=== PATIENT | male | born 1995 | race Caucasian/White ===

== ENCOUNTER 2018-10-05 06:49 | Emergency (ER) | payer OTHER, SELFPAY ==
[2018-10-05 06:54] VITALS: BP 144/87; RESP 90; TEMP 36.5; O2SAT 96
--- NOTE | 2018-10-05 07:01 | DI.CT_ITS ---
SYMPTOM/DIAGNOSIS: PAIN, S/P FALL CT BRAIN: Noncontrast. No priors. A noncontrast cranial CT was performed. The ventricular system is normal in appearance. There is no evidence of an intracranial mass lesion. There is no evidence of a subdural or epidural hematoma. No focal areas of decreased attenuation are seen. CONCLUSION: Normal noncontrast Cranial CT. CT CERVICAL SPINE: Multiple contiguous axial images of the cervical spine were obtained. Sagittal and coronal reformatted images were evaluated on the [employer] workstation. There are no acute fractures or subluxations of the cervical spine. The soft tissues are unremarkable. There is mild straightening of the normal cervical lordosis. This may be due to muscle spasm or patient positioning. IMPRESSION: No acute fracture or subluxation in the cervical spine.
--- NOTE | 2018-10-05 07:04 | ED.GENADUL_ITS ---
Discharge Plan Disposition Patient Disposition: HOME Condition: Stable Discharge Details Chief Complaint: HeadInjury Clinical Impression: Concussion, Cervical strain Primary Care Provider: Unknown,Unknown ED Provider: Chantel Godinez Home Meds and New Rx's Prescriptions: No Action aripiprazole [Abilify] 5 mg Tablet 5 mg PO DAILY RF: 0 Discharge Instructions Instructions: Cervical Strain (ED), Concussion (ED) Additional Instructions: you can take 1000mg tylenol and 600mg ibuprofen every 6 hours for pain as needed follow up with your primary care provider in 1-2 weeks if you have new symptoms such as chest pain, abdominal pain or persistent vomit return to the emergency department Stand Alone Forms: Work Release Discharge Data Discharge Date/Time-TO BE ENTERED AT DEPARTURE: 10/05/18 09:28 Discharge Physician: Chantel Godinez Medical Decision Making <Dionte Salazar MD - Last Filed: 10/07/18 22:15> 23 yo male with hx of adhd states he slipped on ice, fell back and hit his head on ice. He had loc per pt for a few seconds. Denies any precediing symptoms such as chest pain or sob. Has pain in left upper lateral neck and posterior head without focal neuro deficits. I suspect concussion and cervical strain but given loc will image to evaluate for tbi vs cervical spine injury I do not see any traumatic findings on the CT. Pt will be signed out to oncoming provider to f/u on imaging report, d/c if negative Differential Diagnosis concussion, tbi, c spine injury Imaging Data Radiologic Study: Attestation: I personally reviewed and interpreted this imaging study as follows: Imaging: CT Scan My impression: no acute findings <Chantel Godinez DO - Last Filed: 10/06/18 17:08> Please see Dr. Salazar's notes for initial presentation, exam, and plan. Case endorsed to me to f/u on CT head and c-spine imaging results. CT head and c-spine negative. Pt feels much better. He was able to ambulate around the ED. He requested a work note to return on Tuesday. He is instructed that he may have a mild concussion, and to take Tylenol as needed for pain, get plenty of rest, avoid any risk of further injury, follow-up with primary care doctor for reevaluation and to return here immediately with any worsening headaches or persistent vomiting. Medical Records Medical records reviewed: Yes I reviewed the patient's medical records. Lab Data CT Head Without Contrast EXAM DATE/TIME: 10/05/2018 7:02 AM FINDINGS: Brain: No intracranial hemorrhage appreciated. No significant focal mass effect. Midline shift: No significant midline shift. Ventricles: No disproportionate ventriculomegaly. Bones/joints: No cranial vault fracture seen. Sinuses: No air-fluid levels identified. Mastoid air cells: No mastoid effusion. IMPRESSION: No intracranial sequelae of trauma appreciated. CT Cervical Spine Without Contrast EXAM DATE/TIME: 10/05/2018 7:02 AM FINDINGS: Vertebrae: No cervical spine fracture identified. Straightening of the normal cervical lordosis may reflect positioning or muscle spasm; correlate clinically. Lymph nodes: Nonspecific cervical lymph nodes. Lungs: No acute findings. IMPRESSION: No acute osseous injury appreciated in the cervical spine. HPI <Dionte Salazar MD - Last Filed: 10/07/18 22:15> General Mode of arrival: ambulatory . Date/Time Provider Initiated Documentation: 10/05/18 06:50 . Limitations to Documentation: no limitations . Information obtained by: patient . History of Present Illness 23 year old M presents to the emergency department with the chief complaint of head pain, described as moderate, Patient started experiencing this hour(s) (1) and it has been constant. No relieving factors improve symptom(s), No exacerbating factors reported . Patient did receive the following treatments prior to arrival, none Related Data Home Medications Medication Instructions Recorded Confirmed aripiprazole [Abilify] 5 mg PO DAILY 10/05/18 10/05/18 Allergies Allergy/AdvReac Type Severity Reaction Status Date / Time No Known Allergies Allergy Unverified 10/05/18 07:01 General Stated Complaint: HeadInjury IGLESIA: 3 Review of Systems <Dionte Salazar MD - Last Filed: 10/07/18 22:15> Review of Systems All systems reviewed & are unremarkable except as noted in HPI and below Constitutional Denies chills and Denies fever(s) ENT Denies change in voice Cardiovascular Denies chest pain and Denies dyspnea Respiratory Denies cough and Denies dyspnea Gastrointestinal Denies abdominal pain, Denies nausea and Denies vomiting Genitourinary Denies dysuria Musculoskeletal Denies joint swelling Integumentary/Breasts Denies rash PFSH <Dionte Salazar MD - Last Filed: 10/07/18 22:15> Medical History ADHD (Acute) Social History Smoking/Tobacco Use Status: Current-Occasional Tobacco Type: cigarettes Alcohol Intake: never Substance use type: does not use Do you feel safe at home: Yes Do you feel safe in your relationship?: Yes Exam <Dionte Salazar MD - Last Filed: 10/07/18 22:15> Const General: no acute distress Orientation: alert HENMT Head: normal to inspection Ears: external ears normal General nose exam: external nose normal Mouth: moist mucous membranes Eyes General: appearance normal, both eyes and all related structures Neck Neck: normal visual inspection Resp Effort & Inspection: normal respiratory effort and able to speak in complete sentences Cardio Rate: regular rate Skin General skin exam: no rashes or lesions noted Neuro General: alert and oriented x3 Extrem General: normal to inspection Psych Mental Status: mental status grossly normal Course <Dionte Salazar MD - Last Filed: 10/07/18 22:15> Vital Signs Temperature 36.5 C 10/05/18 06:54 Respiratory Rate 90 H 10/05/18 06:54 Blood Pressure 144/87 H 10/05/18 06:54 Pulse Oximetry 96 10/05/18 06:54 Temperature 36.5 C 10/05/18 06:54 Temperature Source Temporal Artery Scan 10/05/18 06:54 Respiratory Rate 90 H 10/05/18 06:54 Respiratory Effort Non-Labored 10/05/18 06:58 Blood Pressure 144/87 H 10/05/18 06:54 Blood Pressure Position Sitting 10/05/18 06:54 Pulse Oximetry 96 10/05/18 06:54 Oxygen Delivery Method Room Air 10/05/18 06:54 Oxygen Flow Rate 0 10/05/18 06:54 Pain Level 8 10/05/18 06:54 Sign Out <Dionte Salazar MD - Last Filed: 10/07/18 22:15> Sign Out Data: Sign Out Comment: follow up on ct head/cspine results Last updated by Dionte Salazar MD at 10/05/18 07:36
[2018-10-05] MEDS: Acetaminophen 500 MG TAB 1000 MG PO (07:08)
--- NOTE | 2018-10-05 08:44 | DI.VRAD_ITS ---
EXAM: CT Head Without Contrast EXAM DATE/TIME: 10/05/2018 7:02 AM CLINICAL HISTORY: 23 years old, male; Injury or trauma; Fall; Initial encounter; Blunt trauma TECHNIQUE: Axial computed tomography images of the head/brain without contrast. Coronal and sagittal reformatted images were created and reviewed. COMPARISON: No relevant prior studies available. FINDINGS: Brain: No intracranial hemorrhage appreciated. No significant focal mass effect. Midline shift: No significant midline shift. Ventricles: No disproportionate ventriculomegaly. Bones/joints: No cranial vault fracture seen. Sinuses: No air-fluid levels identified. Mastoid air cells: No mastoid effusion. IMPRESSION: No intracranial sequelae of trauma appreciated. EXAM: CT Cervical Spine Without Contrast EXAM DATE/TIME: 10/05/2018 7:02 AM CLINICAL HISTORY: 23 years old, male; Injury or trauma; Fall; Initial encounter; Blunt trauma TECHNIQUE: Axial computed tomography images of the cervical spine without intravenous contrast. Coronal and sagittal reformatted images were created and reviewed. COMPARISON: No relevant prior studies available. FINDINGS: Vertebrae: No cervical spine fracture identified. Straightening of the normal cervical lordosis may reflect positioning or muscle spasm; correlate clinically. Lymph nodes: Nonspecific cervical lymph nodes. Lungs: No acute findings. IMPRESSION: No acute osseous injury appreciated in the cervical spine. Dictated and Authenticated by: Heidy Callejas MD. Ordering:BREONNA Rapp MD
[2018-10-05 08:54] VITALS: BP 126/74; PULSE 90; RESP 18; TEMP 36.4; O2SAT 98
[2018-10-05 09:25] VITALS: BP 126/74; PULSE 90; RESP 18; TEMP 36.4; O2SAT 98
== END 2018-10-05 09:28 | disposition home or self-care (01) ==
LOC: ER 12:34
PROVIDERS: Emergency Provider Physician Assistant
DX: S06.0X1A Concussion with loss of consciousness of 30 minutes or less, initial encounter (principal); S16.1XXA Strain of muscle, fascia and tendon at neck level, initial encounter; W00.0XXA Fall on same level due to ice and snow, initial encounter
CPT/HCPCS: 99284; 70450; 72125

== ENCOUNTER 2018-10-31 06:04 | Emergency (ER) | payer OTHER, SELFPAY ==
[2018-10-31 06:07] VITALS: BP 143/79; PULSE 88; RESP 18; TEMP 36.5; O2SAT 100
--- NOTE | 2018-10-31 06:35 | ED.GENADUL_ITS ---
Discharge Plan Disposition Patient Disposition: HOME Condition: Good Discharge Details Chief Complaint: HeadInjury Clinical Impression: Concussion Primary Care Provider: None,None ED Provider: Gene Lemus Home Meds and New Rx's Prescriptions: No Action aripiprazole [Abilify] 5 mg Tablet 5 mg PO DAILY RF: 0 Discharge Instructions Instructions: Concussion (ED) Additional Instructions: Please rest for the next 24 hours, take Tylenol and Motrin as needed for headache. Please drink plenty of fluids. Please avoid any scenarios that could cause repeat trauma to her head. If you notice any worsening of your symptoms, or any new symptoms such as vomiting, diarrhea, fever, chills, shortness of breath, chest pain, numbness, weakness, or fainting , please return immediately to the emergency department for reevaluation. Please follow up with your primary care provider as soon as possible for reassessment and reevaluation. As always, it was a pleasure participating in your medical care today. Stand Alone Forms: Work Release Medical Decision Making This is a 23-year-old male presents today for evaluation of slip and fall. Patient was walking out of his apartment slipped on ice and fell and hit the back of his head. He had no loss of consciousness, he recalls the entire event. He did have mild headache after the event as well as 1-2 episodes of nausea and vomiting, over this is since resolved and he has been able to tolerate p.o. since then. He has had a concussion before. Physical exam demonstrates a reassuring neurologic exam with no neurologic deficits, no signs of significant trauma, midline neck pain, hemotympanum, or other concerning red flags. The patient ambulates well with no signs of ataxia whatsoever. Signs and symptoms are clinically consistent with concussion, and inconsistent with acute intracranial pathology. Out of an abundance of precaution I did offer a CT scan though of the head, however at this time patient has requested to hold off, which I think is completely reasonable. Patient will be discharged home with instructions for rest, close follow-up with his PCP, and prompt return for worsening of his symptoms. Diagnosis concussion. I have extensively reviewed the treatment plan and discharge instructions with the patient. I have addressed all patient concerns at this time. The patient was made aware of what symptoms to monitor for that would warrant a return to the emergency department. Discussed the plan with the patient, they demonstrate verbal understanding and agreement with our assessment and plan at this time. HPI General Date/Time Provider Initiated Documentation: 10/31/18 06:11 . HPI Narrative: This is a 23-year-old male with no significant past medical history who presents today for evaluation of fall. The patient states that roughly 2 hours ago he was walking out of his house, slipped and hit the back of his head. He did something similar to this 1 week ago. He had some mild nausea, and had 2 episodes of vomiting earlier, but has had none since then. He has been able to tolerate p.o. since then. He does admit to a very mild headache, but denies any vision changes, numbness, weakness, tingling, chest pain, shortness of breath. He denies any current dizziness. He states that he has had concussions in the past, and it is felt similar to this. He states that he is feeling slightly better than he did before, however because of the episode of vomiting came in for evaluation. Patient denies any other complaints at this time. Denies any other modifying factors. Related Data Home Medications Medication Instructions Recorded Confirmed aripiprazole [Abilify] 5 mg PO DAILY 10/05/18 10/31/18 Allergies Allergy/AdvReac Type Severity Reaction Status Date / Time No Known Allergies Allergy Unverified 10/31/18 06:09 General Stated Complaint: HeadInjury IGLESIA: 3 Review of Systems Review of Systems All systems reviewed & are unremarkable except as noted in HPI and below [facility] Social History Smoking/Tobacco Use Status: Current every day Tobacco Type: cigarettes Years smoked: 8 Alcohol Intake: never Substance use type: does not use Do you feel safe at home: Yes Do you feel safe in your relationship?: Yes Exam Narrative Exam Narrative: 1.Const: Well-nourished, Well-developed, appearing stated age 2.Eyes: PERRL, no conjunctival injection, and symmetrical lids. 3.ENT: Atraumatic external nose and ears. Moist MM. Neck: Symmetric, trachea midline, No thyromegaly. There is no evidence of raccoon eyes, felder sign, CSF rhinorrhea, mastoid tenderness, cranial crepitus, hemotympanum, exophthalmos, or hyphema. Patient demonstrates intact dentition with no signs of tooth avulsion or fracture, no signs of jaw deformity, no evidence of a LeFort's fracture, with an intact palate, nose and orbital region. There is no evidence of a nasal septal hematoma. No proptosis. Jaw closes symmetrically. Airway is clear. 4.CVS: +S1/S2, No murmurs or gallops. Peripheral pulses 2+ and equal in all extremities. Brisk capillary refill in all extremities. 5.RESP: Unlabored respiratory effort. Clear to auscultation bilaterally. No wheezes rales or rhonchi 6.GI: Soft, Nontender/Nondistended, No hepatosplenomegaly. No guarding or rebound. 7.MSK: Normocephalic/Atraumatic, Extremities w/o deformity or ttp No cyanosis or clubbing, Normal movement of all extremities no midline tenderness to palpation over the CTLS spine. Normal ROM in flexion, extension, side bend, and rotation. Patient has +5 out of 5 strength in the lower extremities in dorsiflexion and plantarflexion, knee flexion and extension, hip flexion and extension. There is +2 over 2 dorsalis pedis pulses bilaterally. There is normal sensation to the skin with light touch at the foot, knee, and hip. Normal saddle sensation. Good sensation over the deep sural nerve area bilaterally. Rectal exam deferred. Reflexes are +2 over 4 in the patellar reflex bilaterally. +5 out of 5 strength in the medial, ulnar, radial nerve distribution bilaterally in the hands as well as intact light touch sensation to these dermatomes on the hands . 8.Skin: Warm, Dry. No rashes or lesions. 9.Neuro: camp recreation specialist II-XII grossly intact. Sensation grossly intact, no focal neurologic deficits. All 6 cardinal planes of vision are fully intact. No evidence of rotatory or vertical nystagmus. The patient demonstrated a normal [id number], good dexterity. There was no evidence of dysdiadochokinesia. Patient was able to ambulate without difficulty. There was no wide-based gait. Romberg, and [id number] are both normal on testing. Sensation was intact bilaterally as well as muscle strength bilaterally for all extremities. Patient was able to verbalize butter cup with no slurring, or miss pronunciation. 10.Psych: (AAO) x3. Appropriate mood and affect Course Vital Signs Temperature 36.5 C 10/31/18 06:07 Pulse 88 10/31/18 06:07 Respiratory Rate 18 10/31/18 06:07 Blood Pressure 143/79 H 10/31/18 06:07 Pulse Oximetry 100 10/31/18 06:07 Temperature 36.5 C 10/31/18 06:07 Temperature Source Skin 10/31/18 06:07 Pulse 88 10/31/18 06:07 Respiratory Rate 18 10/31/18 06:07 Respiratory Effort Non-Labored 10/31/18 06:10 Respiratory Depth Normal 10/31/18 06:10 Respiratory Pattern Normal 10/31/18 06:10 Blood Pressure 143/79 H 10/31/18 06:07 Blood Pressure Position Sitting 10/31/18 06:07 Pulse Oximetry 100 10/31/18 06:07 Oxygen Delivery Method Room Air 10/31/18 06:07 Oxygen Flow Rate 0 10/31/18 06:07 Pain Level 7 10/31/18 06:07
== END 2018-10-31 06:27 | disposition home or self-care (01) ==
PROVIDERS: Emergency Provider Student in an Organized Health Care Education/Training Program
DX: S06.0X0A Concussion without loss of consciousness, initial encounter (principal); W00.0XXA Fall on same level due to ice and snow, initial encounter; Z53.29 Procedure and treatment not carried out because of patient's decision for other reasons
CPT/HCPCS: 99283